=== PATIENT | female | born 1990 | race Caucasian/White ===

== ENCOUNTER 2024-10-11 11:52 | Outpatient (CLI) | payer BC, SELFPAY ==
[2024-10-16 05:53] LABS: Varicella-Zoster Virus Source Vesicle; Varicella-Zoster Virus by PCR Not Detected
== END 2024-10-11 11:53 | disposition home or self-care (01) ==
PROVIDERS: PCP Family Medicine; Visit Provider Nurse Practitioner
DX: R21 Rash and other nonspecific skin eruption (principal); H93.92 Unspecified disorder of left ear
CPT/HCPCS: 86787

== ENCOUNTER 2025-02-19 09:29 | Outpatient (CLI) | payer BC, SELFPAY | END 2025-02-19 09:30 | disposition home or self-care (01) | LOC: NFLDREF 02-22 08:10 | PROVIDERS: PCP Family Medicine; Referring Provider Family Medicine; Visit Provider Family Medicine | DX: E78.5 Hyperlipidemia, unspecified (principal); R53.83 Other fatigue; F33.1 Major depressive disorder, recurrent, moderate; Z13.29 Encounter for screening for other suspected endocrine disorder | CPT/HCPCS: 80053; 80061; 84443 ==

== ENCOUNTER 2025-02-24 10:31 | Outpatient (CLI) | payer BC, SELFPAY ==
[2025-02-26 15:32] LABS: HPV Source Cervical/Vag; HPV, High Risk by TMA Not Detected
== END 2025-02-24 10:32 | disposition home or self-care (01) ==
PROVIDERS: PCP Family Medicine; Visit Provider Family Medicine
DX: R87.810 Cervical high risk human papillomavirus (HPV) DNA test positive (principal); Z12.4 Encounter for screening for malignant neoplasm of cervix; Z11.51 Encounter for screening for human papillomavirus (HPV)
CPT/HCPCS: 87624; 87625; 88141; 88142